=== PATIENT | female | born 1990 | race American Indian/Alaskan Native ===

== ENCOUNTER 2021-09-24 10:43 | Inpatient (IN) | payer MEDICAID ==
[2021-09-24] MEDS ORDERED: diphenhydrAMINE 50 MG/ML SDV IVPUSH PRN (11:04)
[2021-09-24] MEDS ORDERED: ePHEDrine 50 MG/ML SDV IVPUSH PRN (11:04)
[2021-09-24] MEDS ORDERED: Methylergonovine 0.2 MG/1 ML Amp IM PRN (11:04)
[2021-09-24] MEDS ORDERED: Ondansetron 4 MG/2 ML SDV IVPUSH PRN (11:04)
[2021-09-24] MEDS ORDERED: Carboprost Tromethamine 250 MCG/1 ML Amp IM PRN (11:04)
[2021-09-24] MEDS ORDERED: Misoprostol 400 MCG (4 X 100 MCG TAB) RECTAL PRN (11:04)
[2021-09-24] MEDS ORDERED: Acetaminophen 325 MG Tab PO PRN (11:04)
[2021-09-24] MEDS ORDERED: Tranexamic Acid 1,000 MG in Sodium Chloride 0.9% 100 ML IV PRN (11:04)
[2021-09-24] MEDS ORDERED: Naloxone 2 MG/2 ML Syringe IVPUSH PRN (11:04)
[2021-09-24] MEDS ORDERED: Oxytocin/Normal Saline 60 UNIT/1,000 ML BAG ONE (11:19)
[2021-09-24] MEDS ORDERED: Citric Acid/Sodium Citrate Solution 30 ML Cup PO ONE (11:30)
[2021-09-24] MEDS: Lactated Ringers 1,000 ML IV SCH (11:34)
[2021-09-24] MEDS ORDERED: Citric Acid/Sodium Citrate Solution 30 ML Cup ONE (11:43)
[2021-09-24] MEDS ORDERED: Rocuronium 100 MG/10 ML MDV ONE (11:46)
[2021-09-24] MEDS ORDERED: Succinylcholine 200 MG/10 ML MDV ONE (11:46)
[2021-09-24] MEDS: ceFAZolin 2 GM in Premix Bag 1 BAG IV ONE ×2 (12:10→18:05)
[2021-09-24 12:12] LABS: ESTIMATED GFR 82 mL/min (>=60)
[2021-09-24] MEDS ORDERED: Oxytocin/Normal Saline 30 UNIT/500 ML BAG IV SCH (12:15)
[2021-09-24] MEDS: Magnesium Sulfate/Water 4 GM in Premix Bag 1 BAG IV ONE (13:00)
[2021-09-24] MEDS ORDERED: Magnesium Sulfate/Water 4 GM in Premix Bag 1 BAG IV ONE (13:15)
[2021-09-24] MEDS ORDERED: Magnesium Sulfate/Water 20 GM/500 ML BAG ONE (13:41)
[2021-09-24] MEDS ORDERED: Labetalol 20 MG/4 ML Syringe IVPUSH PRN (13:43)
[2021-09-24] MEDS ORDERED: Calcium Gluconate 10% 1 GM/10 ML SDV IV PRN (13:43)
[2021-09-24] MEDS: Magnesium Sulfate/Water 20 GM/500 ML BAG IV SCH (14:00)
[2021-09-24] MEDS ORDERED: Acetaminophen/oxyCODONE 325-5 MG Tab PO PRN (14:00)
[2021-09-24] MEDS ORDERED: Oxytocin/Normal Saline 30 UNIT/500 ML BAG IV ONE (14:32)
[2021-09-24] MEDS: Simethicone 80 MG Tab.Chew PO SCH ×2 (18:12→22:52)
[2021-09-24] MEDS: Ketorolac 30 MG/ML SDV IVPUSH SCH (18:12)
[2021-09-25] MEDS: Ketorolac 30 MG/ML SDV IVPUSH SCH ×2 (00:12→06:25)
[2021-09-25] MEDS: Lactated Ringers 1,000 ML IV SCH (06:25)
[2021-09-25] MEDS: Simethicone 80 MG Tab.Chew PO SCH ×4 (08:55→21:54)
[2021-09-25] MEDS: Prenatal Multivitamin with Calcium/Folic Acid/Iron Tab PO SCH (08:55)
[2021-09-25] MEDS: Docusate Sodium 100 MG Cap PO PRN ×2 (08:59→21:54)
[2021-09-25] MEDS: Magnesium Sulfate/Water 20 GM/500 ML BAG IV SCH ×2 (10:16)
[2021-09-25] MEDS ORDERED: Labetalol 100 MG Tab PO ONE (12:30)
[2021-09-25] MEDS: Acetaminophen/oxyCODONE 325-5 MG Tab PO PRN ×3 (12:35→21:57)
[2021-09-25] MEDS: Ibuprofen 800 MG Tab PO PRN (21:54)
[2021-09-26] MEDS: Ibuprofen 800 MG Tab PO PRN ×3 (06:12→22:30)
[2021-09-26] MEDS: Acetaminophen/oxyCODONE 325-5 MG Tab PO PRN ×4 (06:12→21:42)
[2021-09-26] MEDS: Simethicone 80 MG Tab.Chew PO SCH ×4 (09:17→21:42)
[2021-09-26] MEDS: Prenatal Multivitamin with Calcium/Folic Acid/Iron Tab PO SCH (09:17)
[2021-09-26] MEDS: Magnesium Sulfate/Water 4 GM in Premix Bag 1 BAG IV ONE (12:49)
[2021-09-27] MEDS: Acetaminophen/oxyCODONE 325-5 MG Tab PO PRN ×2 (02:39→08:21)
[2021-09-27] MEDS: Ibuprofen 800 MG Tab PO PRN (06:34)
[2021-09-27] MEDS: Simethicone 80 MG Tab.Chew PO SCH (08:21)
[2021-09-27] MEDS: Prenatal Multivitamin with Calcium/Folic Acid/Iron Tab PO SCH (08:22)
== END 2021-09-27 15:20 | disposition home or self-care (01) | DRG 787 ==
LOC: DL.OBCHECK 10:43 → DL.OB 11:04 → OBSVTOIN 12:32 → DL.OB 12:32 → DL.MS 09-25 17:29
PROVIDERS: ADMIT Family Medicine; ATTEND Family Medicine
PROC: 10D00Z1 Extraction of Products of Conception, Low, Open Approach (ICD-10-PCS; principal; 2021-09-24)
DX: O14.14 Severe pre-eclampsia complicating childbirth (principal); A54.9 Gonococcal infection, unspecified; O98.22 Gonorrhea complicating childbirth; O98.82 Other maternal infectious and parasitic diseases complicating childbirth; O34.211 Maternal care for low transverse scar from previous cesarean delivery; O99.214 Obesity complicating childbirth; Z20.822 Contact with and (suspected) exposure to COVID-19; Z3A.38 38 weeks gestation of pregnancy; Z37.0 Single live birth
CPT/HCPCS: 01961; 36415; 81003; 82565; 82570; 83615; 83735; 84156; 84450; 84460; 84520; 84550; 85027; 86850; 86900; 86901; A9270-GY; J0330; J0456; J0690; J1200; J1885; J2590; J3475; J3490; J7050; J7120; U0002

== ENCOUNTER 2024-03-27 15:07 | Observation (INO) | payer MEDICAID ==
[2024-03-27] MEDS ORDERED: Sodium Chloride 0.9% 10 ML Syringe FLUSH PRN ×2 (15:23→19:28)
[2024-03-27] MEDS: traMADol 50 MG Tab PO ONE (15:28)
[2024-03-27 15:34] LABS: BASOPHILS PERCENT AUTO 0.2 % (0.0-1.0); EOSINOPHILS PERCENT AUTO 1.1 % (1.0-3.0); HEMATOCRIT 36.7 % (37.0-47.0); HEMOGLOBIN 11.7 g/dL (12.0-16.0); LYMPHOCYTES PERCENT AUTO 23.4 % (20.5-50.1); MEAN CORPUSCULAR HGB CONC 31.9 g/dL (33.0-35.0); MEAN CORPUSCULAR VOLUME 87.8 fL (80-100); MONOCYTES PERCENT AUTO 3.8 % (2-8); NEUTROPHILS PERCENT AUTO 71.5 % (42.2-75.2); PLATELET COUNT,PLT 407 10^3/uL (150-450); RED BLOOD CELL COUNT 4.18 10^6/uL (4.2-5.4); WHITE BLOOD CELL COUNT,WBC 13.1 10^3/uL (5.0-10.0)
[2024-03-27 15:53] LABS: A/G RATIO 0.9; ALBUMIN 3.6 g/dL (3.4-5.0); ANION GAP 18.1 mEq/L (7-13); BILIRUBIN TOTAL 0.2 mg/dL (0.2-1.0); BUN/CREATININE RATIO 14.7 (No establ ref range); C-REACTIVE PROTEIN 3.29 ng/dL (<=0.50); CALCIUM 9.5 mg/dL (8.5-10.1); CREATININE 0.95 mg/dL (0.55-1.02); EST CRCL DRUG DOSING (CG) 75.08 mL/min; POTASSIUM,K 4.1 mmol/L (3.5-5.1); PROTEIN TOTAL,TP 7.8 g/dL (6.4-8.2)
[2024-03-27 15:56] LABS: LACTIC ACID 1.4 mmol/L (0.4-2.0)
[2024-03-27] MEDS: Iopamidol 612 MG/ML 100 ML Bottle IVPUSH ONE (16:24)
[2024-03-27] MEDS: Clindamycin in 0.9 % Sod Chlor 600 MG in Premix Bag 1 BAG IV ONE (17:39)
[2024-03-27] MEDS: Ketorolac 30 MG/ML SDV IVPUSH ONE (17:42)
[2024-03-27] MEDS ORDERED: Ondansetron 4 MG/2 ML SDV IVPUSH PRN (19:28)
[2024-03-27] MEDS ORDERED: Docusate Sodium 100 MG Cap PO PRN (19:36)
[2024-03-27] MEDS ORDERED: Melatonin 3 MG Tab PO PRN (19:36)
[2024-03-27] MEDS ORDERED: Polyethylene Glycol 3350 Powder 17 GM Packet PO PRN (19:36)
[2024-03-27] MEDS: Ampicillin/Sulbactam Na 3 GM in Sodium Chloride 0.9% 100 ML IV SCH (20:34)
[2024-03-27] MEDS: methylPREDNISolone Sodium Succinate 40 MG/1 ML SDV IVPUSH SCH (20:35)
[2024-03-27] MEDS: atorvaSTATin 20 MG Tab PO SCH (20:35)
[2024-03-27] MEDS: Acetaminophen 325 MG Tab PO PRN (20:40)
[2024-03-27] MEDS: Chlorthalidone 25 MG Tab PO ONE (21:08)
[2024-03-28 00:07] LABS: PROTHROMBIN TIME 10.3 SEC (9.0-12.0); PTT,PARTIAL THROMBOPLSTIN TIME 27.5 SEC (22.0-34.0)
[2024-03-28] MEDS: Ketorolac 30 MG/ML SDV IVPUSH PRN (00:46)
[2024-03-28] MEDS: Pantoprazole 40 MG Tab.CR PO SCH (06:07)
[2024-03-28] MEDS: Sodium Chloride 0.9% 10 ML Syringe FLUSH SCH (06:09)
[2024-03-28 06:34] LABS: BASOPHILS PERCENT AUTO 0.1 % (0.0-1.0); HEMATOCRIT 36.4 % (37.0-47.0); HEMOGLOBIN 11.3 g/dL (12.0-16.0); LYMPHOCYTES PERCENT AUTO 11.4 % (20.5-50.1); MEAN CORPUSCULAR HEMOGLOBIN 27.4 pg (27.0-34.0); MEAN CORPUSCULAR VOLUME 88.1 fL (80-100); MONOCYTES PERCENT AUTO 0.4 % (2-8); NEUTROPHILS PERCENT AUTO 88.1 % (42.2-75.2); PLATELET COUNT,PLT 461 10^3/uL (150-450); RED BLOOD CELL COUNT 4.13 10^6/uL (4.2-5.4); WHITE BLOOD CELL COUNT,WBC 13.8 10^3/uL (5.0-10.0)
[2024-03-28 07:00] LABS: A/G RATIO 0.8; ALBUMIN 3.4 g/dL (3.4-5.0); ANION GAP 16.3 mEq/L (7-13); BILIRUBIN TOTAL 0.2 mg/dL (0.2-1.0); BUN/CREATININE RATIO 15.6 (No establ ref range); C-REACTIVE PROTEIN 3.47 ng/dL (<=0.50); CALCIUM 9.2 mg/dL (8.5-10.1); CREATININE 0.9 mg/dL (0.55-1.02); EST CRCL DRUG DOSING (CG) 79.25 mL/min; POTASSIUM,K 4.3 mmol/L (3.5-5.1); PROTEIN TOTAL,TP 7.7 g/dL (6.4-8.2)
[2024-03-28] MEDS: Escitalopram 10 MG Tab PO SCH (08:34)
[2024-03-28] MEDS: Lisinopril 20 MG Tab PO SCH (08:34)
[2024-03-28] MEDS: Enoxaparin 40 MG/0.4 ML Syringe SUBCUT SCH (08:36)
[2024-03-28] MEDS: Cholecalciferol (Vitamin D3) 25 MCG Tab PO SCH (09:47)
[2024-03-29 06:27] LABS: BASOPHILS PERCENT AUTO 0.1 % (0.0-1.0); HEMATOCRIT 34.4 % (37.0-47.0); HEMOGLOBIN 10.9 g/dL (12.0-16.0); LYMPHOCYTES PERCENT AUTO 10.1 % (20.5-50.1); MEAN CORPUSCULAR HEMOGLOBIN 27.9 pg (27.0-34.0); MEAN CORPUSCULAR HGB CONC 31.7 g/dL (33.0-35.0); MEAN CORPUSCULAR VOLUME 88.2 fL (80-100); MONOCYTES PERCENT AUTO 4.2 % (2-8); NEUTROPHILS PERCENT AUTO 85.6 % (42.2-75.2); PLATELET COUNT,PLT 461 10^3/uL (150-450); WHITE BLOOD CELL COUNT,WBC 22.9 10^3/uL (5.0-10.0)
[2024-03-29 06:48] LABS: ALBUMIN 3.2 g/dL (3.4-5.0); ANION GAP 16.2 mEq/L (7-13); BILIRUBIN TOTAL 0.1 mg/dL (0.2-1.0); BUN/CREATININE RATIO 23.3 (No establ ref range); C-REACTIVE PROTEIN 1.7 ng/dL (<=0.50); CALCIUM 8.8 mg/dL (8.5-10.1); CREATININE 0.86 mg/dL (0.55-1.02); EST CRCL DRUG DOSING (CG) 82.94 mL/min; POTASSIUM,K 4.2 mmol/L (3.5-5.1); PROTEIN TOTAL,TP 7.3 g/dL (6.4-8.2)
[2024-03-29 06:50] LABS: A/G RATIO 0.78
== END 2024-03-29 07:39 | disposition home or self-care (01) ==
LOC: DL.ED 15:07 → DL.MS 18:21
PROVIDERS: ADMIT Student in an Organized Health Care Education/Training Program; ATTEND Student in an Organized Health Care Education/Training Program
DX: K04.7 Periapical abscess without sinus (principal); I10 Essential (primary) hypertension; R73.03 Prediabetes; F41.9 Anxiety disorder, unspecified; D72.829 Elevated white blood cell count, unspecified; D64.9 Anemia, unspecified; D75.839 Thrombocytosis, unspecified; E66.813 Obesity, class 3; Z68.43 Body mass index [BMI] 50.0-59.9, adult; Z79.899 Other long term (current) drug therapy; Z91.09 Other allergy status, other than to drugs and biological substances
CPT/HCPCS: 36415; 41800; 70487; 80053; 80143; 83605; 85025; 85610; 85730; 86140; 96365; 96375; 99222; 99232; 99238; 99284; A9270; J0295; J1650; J1885; J2919; J3490; Q9967; 10060

== ENCOUNTER 2024-07-01 04:53 | Emergency (ER) | payer MEDICAID ==
[2024-07-01] MEDS: Ondansetron 4 MG/2 ML SDV IVPUSH ONE (05:21)
[2024-07-01] MEDS: LORazepam 2 MG/ML SDV IVPUSH ONE (05:22)
[2024-07-01] MEDS: Sodium Chloride 0.9% 1,000 ML IV ONE ×2 (05:22→06:01)
[2024-07-01 05:25] LABS: BASOPHILS PERCENT AUTO 0.3 % (0.0-1.0); EOSINOPHILS PERCENT AUTO 0.6 % (1.0-3.0); HEMATOCRIT 44.5 % (37.0-47.0); LYMPHOCYTES PERCENT AUTO 38.3 % (20.5-50.1); MEAN CORPUSCULAR HEMOGLOBIN 25.8 pg (27.0-34.0); MEAN CORPUSCULAR HGB CONC 31.5 g/dL (33.0-35.0); MONOCYTES PERCENT AUTO 6.2 % (2-8); NEUTROPHILS PERCENT AUTO 54.6 % (42.2-75.2); PLATELET COUNT,PLT 289 10^3/uL (150-450); RED BLOOD CELL COUNT 5.43 10^6/uL (4.2-5.4); WHITE BLOOD CELL COUNT,WBC 12.7 10^3/uL (5.0-10.0)
[2024-07-01 05:54] LABS: ALANINE AMINOTRANSFERASE,ALT 165 U/L (14-59); ALBUMIN 3.9 g/dL (3.4-5.0); ALKALINE PHOSPHATASE 202 U/L (46-116); ASPARTATE AMNIOTRANSFERASE,AST 136 U/L (15-37); BILIRUBIN TOTAL 0.8 mg/dL (0.2-1.0); BLOOD UREA NITROGEN,BUN 7 mg/dL (7-18); BUN/CREATININE RATIO 6.8 (No establ ref range); CARBON DIOXIDE,CO2 20 mmol/L (21-32); CHLORIDE,CL 101 mmol/L (98-107); CREATININE 1.03 mg/dL (0.55-1.02); GLUCOSE RANDOM 139 mg/dL (70-99); LIPASE 62 U/L (16-77); MAGNESIUM 1.2 mg/dL (1.8-2.4); SODIUM,NA 131 mmol/L (136-145); TSH ULTRASENSITIVE 1.15 uIU/mL (0.36-3.74)
[2024-07-01 05:55] LABS: ESTIMATED GFR 73 mL/min (>=60); ETHANOL BLOOD MEDICAL < 3 mg/dL (0)
[2024-07-01 05:56] LABS: LACTIC ACID 4.8 mmol/L (0.4-2.0)
[2024-07-01] MEDS: Potassium Chloride 10 MEQ Tab.ER PO ONE ×2 (06:39→08:38)
[2024-07-01] MEDS: Potassium Chloride 10 MEQ in Premix Bag 1 BAG IV ONE (06:54)
[2024-07-01] MEDS: Magnesium Sulf/Wat 2 GM/50 mL 2 GM in Premix Bag 1 BAG IV ONE (06:54)
[2024-07-01] MEDS: chlordiazePOXIDE 25 MG Cap PO ONE (08:38)
[2024-07-01] MEDS: Multivitamin Tab PO ONE (08:38)
[2024-07-01] MEDS: Folic Acid 1 MG Tab PO ONE (08:39)
[2024-07-01] MEDS: Thiamine 100 MG Tab PO ONE (08:39)
[2024-07-01] MEDS: Magnesium Oxide 400 MG Tab PO ONE (08:58)
== END 2024-07-01 10:53 | disposition home or self-care (01) ==
LOC: DL.ED 04:53
DX: F10.231 Alcohol dependence with withdrawal delirium (principal); E83.42 Hypomagnesemia; E87.6 Hypokalemia; E66.9 Obesity, unspecified; Z88.8 Allergy status to other drugs, medicaments and biological substances; Z79.899 Other long term (current) drug therapy; Z68.43 Body mass index [BMI] 50.0-59.9, adult
CPT/HCPCS: 36415; 80053; 80307; 83605; 83690; 83735; 84443; 84484; 85025; 96361; 96365; 96366; 96368; 96375; 99284; A9270; J2060; J2405; J3475; J3480; J7030